=== PATIENT | female | born 1955 | race Caucasian/White ===

== ENCOUNTER 2016-05-10 05:00 | Inpatient (IN) ==
[2016-04-20 14:05] LABS: Basophils % 0.3 % (0.0-0.8); Eosinophils # 0.1 10*3/uL (0.0-0.87); Hematocrit 39.2 VOL% (35.7-47.0); Hemoglobin 12.6 GM/DL (12.0-16.0); Immature Granulocytes % 0.3 %; Immature Granulocytes Absolute 0.03 #; Lymphocytes # 2.8 10*3/uL (1.4-4.0); Lymphocytes % 31.5 % (21.3-54.2); Mean Corpuscular HGB Conc 32.1 GM/DL (32-36); Mean Corpuscular Hemoglobin 32 PG (27-34); Mean Platelet Volume 9.6 FL (9.6-12.0); Monocytes # 0.5 10*3/uL (0.11-0.8); Monocytes % 5.7 % (1.7-12.7); Neutrophils # 5.3 10*3/uL (1.4-7.4); Neutrophils % 61.2 % (38.7-73.9); Platelet Count 251 T/CUMM (130-400); Red Cell Distribution Width 11.9 % (9.3-17.3); White Blood Count 8.8 T/CUMM (4-12)
[2016-04-20 14:35] LABS: PT Patient Result 10.7 SECS; Partial Thromboplastin Time 25.7 SECS (0-40)
--- NOTE | 2016-04-20 14:35 | XRay Report ---
XR chest 2V Indication: Respiratory preoperative evaluation Comparison: 21 Jul 2013 Findings: The heart and mediastinum are normal in size and configuration. The pulmonary vascularity is normal in caliber. No lung infiltrates, effusions, pneumothorax or other abnormality is demonstrated. Impression: Normal chest x-ray PROCEDURE INTERPRETED AT [facility] DEPARTMENT OF RADIOLOGY Final Report Signed by: Dr. Suraj Pugh
--- NOTE | 2016-04-20 14:36 | EKG Report ---
Stationary ECG Study [facility] Test Date: 04/20/2016 2:35:58 PM Pat Name: CLINTON ALDANA Department: Room: Gender: F Blueprint Engineer: FLAVIA ROTH : 1955 Requested by: Sunil Kamara Order Number: [id number] Reading MD: SANDEEP MILLER Intervals [place] Rate: 56 P: 44 ID: [id number] QRS: 19 QRSD: 100 T: 24 QT: 392 QTc: 384 Interpretive Statements SINUS RHYTHM Electronically Signed On 04-20-16 22:09:53 DIRECTOR OF CARDIAC CATH LAB by SANDEEP MILLER [email or web address]
[2016-04-20 14:51] LABS: Albumin 3.8 G/DL (3.4-5.0); Bilirubin,Total 0.4 MG/DL (0.2-1.0); Calcium 8.3 MG/DL (8.5-10.1); Osmolality,Calculated 285.8 MOS/KG (273-304); Total Protein 6.8 G/DL (6.4-8.3)
[2016-05-08 14:46] LABS: Apearance,Urine Clear (Clear); Bilirubin,Urine Negative (Negative); Blood, Urine Negative (Negative); Glucose,Urine (UA) Negative (Negative); Ketones,Urine 25 mg/dL (Negative); Nitrite,Urine Negative (Negative); Protein,Urine 30 MG/DL; Urine Color Amber (Yellow); Urine Urobilinogen 0.2 EU/DL (0.2-1.0)
[2016-05-08 15:06] LABS: Bacteria,Urine 2+ /HPF (Few); Mucus,Urine Few /LPF (Occasional); Squamous Epithelial Cell,Urine Few /HPF (0-10)
[2016-05-10] MEDS ORDERED: ceFAZolin 1,000 MG VIAL ONE (05:51)
[2016-05-10] MEDS ORDERED: VANCOMYCIN 1,000 MG VIAL ONE (05:51)
[2016-05-10] MEDS ORDERED: SODIUM CHLORIDE 0.9% 100 ML IV ONE (05:52)
[2016-05-10] MEDS ORDERED: FAMOTIDINE 20 MG TABLET ONE (05:52)
[2016-05-10] MEDS ORDERED: LORazepam 1 MG TABLET ONE (05:52)
[2016-05-10] MEDS ORDERED: LORazepam 1 MG TABLET PO ONE (06:00)
[2016-05-10] MEDS ORDERED: FAMOTIDINE 20 MG TABLET PO ONE (06:00)
[2016-05-10] MEDS ORDERED: VANCOMYCIN INJ 1,000 MG in SODIUM CHLORIDE 0.9% 250 ML IV ONE (06:00)
[2016-05-10] MEDS ORDERED: LACTATED RINGERS 1,000 ML IV SCH (06:16)
[2016-05-10] MEDS ORDERED: TRANEXAMIC ACID 1,000 MG/10 ML VIAL IV ONE (06:36)
[2016-05-10] MEDS ORDERED: BACITRACIN OINT 0.9 GM PACK TOP ONE (06:39)
[2016-05-10] MEDS ORDERED: ESMOLOL 100 MG/10 ML VIAL IV ONE (07:15)
[2016-05-10] MEDS ORDERED: PROPOFOL 200 MG/20 ML VIAL IV ONE (07:15)
[2016-05-10] MEDS ORDERED: ONDANSETRON 4 MG/2 ML VIAL ONE (07:15)
[2016-05-10] MEDS ORDERED: LIDOCAINE 2% 5 ML VIAL ONE (07:15)
--- NOTE | 2016-05-10 07:18 | History and Physical Update ---
History and Physical Update - History and Physical H&P was reviewed, the patient examined and there: are no changes in the patients condition since last H&P was completed.
[2016-05-10 08:44] LABS: Apearance,Urine CLEAR (Clear); Bilirubin,Urine Negative (Negative); Blood, Urine Negative (Negative); Glucose,Urine (UA) Negative (Negative); Ketones,Urine Negative (Negative); Nitrite,Urine Negative (Negative); Protein,Urine Negative; RBC,Urine 1 /HPF (0-4); Squamous Epithelial Cell,Urine Occasional /HPF (0-10); Urine Color Straw (Yellow); Urine Specific Gravity 1.009 (1.001-1.035); Urine Urobilinogen < 2.0 EU/DL (0.2-1.0); WBC,Urine <1 /HPF (0-6)
[2016-05-10] MEDS ORDERED: oxyCODONE IR 5 MG TABLET PO PRN (08:56)
[2016-05-10] MEDS ORDERED: ONDANSETRON 4 MG/2 ML VIAL IV PRN (08:56)
[2016-05-10] MEDS ORDERED: ZALEPLON 5 MG CAPSULE PO PRN (08:56)
[2016-05-10] MEDS ORDERED: diphenhydrAMINE CAP 25 MG CAPSULE PO PRN (08:56)
[2016-05-10] MEDS ORDERED: MORPHINE 2 MG/1 ML SYRINGE IV PRN ×2 (08:56)
--- NOTE | 2016-05-10 08:56 | Operative Note ---
Date of procedure: 05/10/16 Procedure: DIAGNOSIS: Left hip osteoarthritis, primary PROCEDURE: Left total hip arthroplasty (CPT#18854) SURGEON: Musa ANESTHESIA: Spinal JAPANESE TUTOR: Kemal Cox PROCEDURE and FINDINGS: After adequate anesthesia was induced, her left lower extremity was prepped and draped in usual sterile fashion lateral decubitus position. A posterior lateral approach was made. Skin, subcutaneous tissue and iliotibial band was incised. Gluteus parmjit muscle belly was split in line with its fibers. Capsule and external rotators were taken down as a single layer as an inverted L-shaped capsulotomy. The hip was dislocated. Templated femoral neck cut was made. Acetabulum was prepared by excising labrum and foveal contents. Acetabulum was sequentially reamed to 55 mm. A 56 mm Continuum shell was press fit. One 6.5mm screw was placed. A trial liner was placed. Femur was prepared by using the box osteotome and sequentially broaching to size 14. Components were trial. A 32 mm neutral liner longevity liner and dome hole plug was placed. A size 14 Versys fiber metal tapered stem was press-fit with a 32+0 mm head. Capsule and external rotators were repaired back to the greater trochanter with #5 Tycron. Deep layers were closed with 0 Vicryl suture. Subcutaneous tissue was closed deep with 2-0 Vicryl runner and superficially with 3-0 Vicryl interrupted, buried sutures. Skin was closed with bridgett. Bacitracin and sterile occlusive dressing was applied. Surgeon / Physician: Sunil Vigil Jr. Results - Labs CBC & BMP: 04/20/16 14:00 04/20/16 14:00 Discharge Plan - Discharge Medications No Action Multivit-Min/FA/Lycopene/Lut [Centrum Silver Tablet] 1 each PO DAILY Estradiol [Estradiol 0.1 mg/24 hr (2x week) Patch] 1 patch TRANSDERM SUWE Calcium (Citrate) [Citracal] 600 mg PO DAILY - Follow Up or Referral - Forms/Instructions
[2016-05-10] MEDS ORDERED: KETOROLAC 30 MG/1 ML VIAL ONE (09:16)
[2016-05-10] MEDS: KETOROLAC 30 MG/1 ML VIAL IV SCH ×3 (09:20→21:12)
[2016-05-10] MEDS ORDERED: fentaNYL 100 MCG/2 ML VIAL ONE (09:21)
[2016-05-10] MEDS ORDERED: MIDAZOLAM 2 MG/2 ML VIAL ONE (09:21)
[2016-05-10] MEDS ORDERED: ACETAMINOPHEN 1,000 MG/100 ML VIAL IV ONE (09:21)
[2016-05-10] MEDS ORDERED: SODIUM CHLORIDE 0.9% 250 ML IV ONE (09:22)
[2016-05-10] MEDS ORDERED: ePHEDrine 50 MG/ML AMP ONE (09:22)
--- NOTE | 2016-05-10 09:24 | Anesthesia ---
Anesthesia Post OP - Post Ansesthetic Evaluation Patient seen in post op: Yes Resp: within normal limits CV: within normal limits Mental: within normal limits Temp: within normal limits [id number]: within normal limits Nausea and Vomiting: within normal limits Pain: within normal limits
--- NOTE | 2016-05-10 10:33 | XRay Report ---
History: Joint replacement left hip Date: 05/10/2016 Study: Left hip single view Comparison exam: No previous The patient is postop left hip replacement. The left hip prosthesis is well conjugated. There is no radiographic evidence of complication. Postsurgical soft tissue emphysema is noted. Surgical skin bridgett overlie the soft tissues laterally. Impression: Satisfactory postoperative appearance of the left hip prosthesis PROCEDURE INTERPRETED AT [facility] DEPARTMENT OF RADIOLOGY Final Report Signed by: Dr. Deanne Youngblood
[2016-05-10] MEDS: DOCUSATE SODIUM 100 MG CAPSULE PO SCH ×2 (11:19→21:12)
[2016-05-10] MEDS: MULTIVITAMIN (CENTRUM) TABLET PO SCH (11:19)
[2016-05-10] MEDS: ACETAMINOPHEN 500 MG TABLET PO SCH ×2 (12:48→18:00)
[2016-05-10] MEDS: oxyCODONE IR 5 MG TABLET PO PRN ×2 (13:12→19:22)
[2016-05-10] MEDS: LACTATED RINGERS 1,000 ML IV SCH (15:59)
--- NOTE | 2016-05-10 17:01 | Orthopedic Progress Note ---
Orthopedics - Subjective Interval history: Post check. Just got into bed. NV ok. Dressing dry. Continue current plan. Exam - Constitutional Vitals: Period Temp Pulse Resp BP Sys/Sylvester Pulse Ox Last 24 Hr 97.0 F-99.4 F 67-104 16- 104-126/57-92 93-99 Results - Labs CBC & BMP: 04/20/16 14:00 04/20/16 14:00
[2016-05-11] MEDS: LACTATED RINGERS 1,000 ML IV SCH ×3 (00:14→09:48)
[2016-05-11] MEDS: ACETAMINOPHEN 500 MG TABLET PO SCH ×2 (00:15→06:28)
[2016-05-11] MEDS: KETOROLAC 30 MG/1 ML VIAL IV SCH (03:59)
[2016-05-11] MEDS: FONDAPARINUX 2.5 MG/0.5 ML SYRINGE SUBCUT SCH (03:59)
[2016-05-11] MEDS: oxyCODONE IR 5 MG TABLET PO PRN ×2 (06:28→13:24)
[2016-05-11 06:52] LABS: Basophils % 0.2 % (0.0-0.8); Eosinophils # 0.1 10*3/uL (0.0-0.87); Eosinophils % 0.6 % (0.00-10.9); Hematocrit 31.9 VOL% (35.7-47.0); Hemoglobin 10.6 GM/DL (12.0-16.0); Immature Granulocytes % 0.6 %; Immature Granulocytes Absolute 0.09 #; Lymphocytes # 1.8 10*3/uL (1.4-4.0); Lymphocytes % 12.4 % (21.3-54.2); Mean Corpuscular HGB Conc 33.2 GM/DL (32-36); Mean Corpuscular Hemoglobin 31 PG (27-34); Mean Corpuscular Volume 94.4 FL (87-102); Mean Platelet Volume 9.8 FL (9.6-12.0); Monocytes % 6.8 % (1.7-12.7); Neutrophils # 11.3 10*3/uL (1.4-7.4); Neutrophils % 79.4 % (38.7-73.9); Platelet Count 212 T/CUMM (130-400); Red Blood Count 3.38 MC/CUMM (3.8-5.5); Red Cell Distribution Width 11.9 % (9.3-17.3); White Blood Count 14.3 T/CUMM (4-12)
[2016-05-11 07:30] LABS: Calcium 7.8 MG/DL (8.5-10.1); Osmolality,Calculated 287.6 MOS/KG (273-304); Potassium 3.9 MMOL/L (3.5-5.1)
[2016-05-11] MEDS ORDERED: ACETAMINOPHEN 325 MG TABLET PO PRN (08:58)
[2016-05-11] MEDS: DOCUSATE SODIUM 100 MG CAPSULE PO SCH ×2 (09:15→20:56)
[2016-05-11] MEDS: MAGNESIUM HYDROXIDE SUSP 30 ML UDCUP PO PRN (09:15)
[2016-05-11] MEDS: MULTIVITAMIN (CENTRUM) TABLET PO SCH (09:15)
--- NOTE | 2016-05-11 09:49 | Orthopedic Progress Note ---
Orthopedics - Subjective Interval history: comfortable. nv ok. dressing dry. mobilize with therapy. Exam - Constitutional Vitals: Period Temp Pulse Resp BP Sys/Sylvester Pulse Ox Last 24 Hr 97.6 F-99.4 F 70-101 17-20 77-122/35-77 93-97 Results - Labs CBC & BMP: 05/11/16 06:30 05/11/16 06:30
--- NOTE | 2016-05-11 10:20 | Pathology Report from [facility] ---
ACCESSION # : [id number] PATIENT NAME : Clinton Aldana ORDERING DR : TIGRE ALLISON MD CLINICAL HX: LT hip osteoarthritis POST-OP DX: Same SPECIMEN INFO: LT hip bone & tissue GROSS DESCRIPTION: Received in formalin labeled "CLINTON ALDANA" is a 4.7 x 4.8 x 5.6 cm femoral head. The articular surfaces are degenerative with a 0.4 cm area of eburnation and peripheral osteophyte formalin present. The cut surface is smooth with moderate bone softening appreciated. Also received in the specimen container are portions of hyperemic bone fragments and creamy white tissue measuring collectively 6.5 x 8.5 cm. Representaive sections are submitted in one cassette following decalcification. DIAGNOSIS FOR CLINTON ALDANA: Left femoral head with changes of degenerative joint disease/ osteoarthritis.Unremarkable hematopoietic marrow with nor abnormal collections of blasts, plasma cells, tumor cells, or lymphocytes seen. SERVICE DATE: 05/10/2016 REPORT DATE: 05/11/2016 PATHOLOGIST: Lake Giang M.D. [facility]
[2016-05-11] MEDS: oxyCODONE/ACETAMINOPHEN 5-325 MG TABLET PO PRN ×2 (16:58→20:57)
[2016-05-12] MEDS: FONDAPARINUX 2.5 MG/0.5 ML SYRINGE SUBCUT SCH (02:22)
[2016-05-12] MEDS: oxyCODONE/ACETAMINOPHEN 5-325 MG TABLET PO PRN ×3 (03:52→10:30)
[2016-05-12 05:07] LABS: Basophils % 0.2 % (0.0-0.8); Eosinophils # 0.2 10*3/uL (0.0-0.87); Eosinophils % 1.3 % (0.00-10.9); Hematocrit 32.6 VOL% (35.7-47.0); Hemoglobin 10.4 GM/DL (12.0-16.0); Immature Granulocytes % 0.5 %; Immature Granulocytes Absolute 0.07 #; Mean Corpuscular HGB Conc 31.9 GM/DL (32-36); Mean Corpuscular Hemoglobin 31 PG (27-34); Mean Corpuscular Volume 98.5 FL (87-102); Mean Platelet Volume 10.1 FL (9.6-12.0); Monocytes # 1.2 10*3/uL (0.11-0.8); Monocytes % 9.4 % (1.7-12.7); Neutrophils # 9.7 10*3/uL (1.4-7.4); Neutrophils % 73.6 % (38.7-73.9); Platelet Count 221 T/CUMM (130-400); Red Blood Count 3.31 MC/CUMM (3.8-5.5); Red Cell Distribution Width 11.9 % (9.3-17.3); White Blood Count 13.1 T/CUMM (4-12)
--- NOTE | 2016-05-12 07:21 | Discharge Summary ---
Hospital Course - Hospital Course Hospital Course: Leena Quezada was admitted after undergoing an uncomplicated left total hip arthroplasty. She received perioperative DVT and antimicrobial prophylaxis. She received physical therapy. She was discharged home postoperative day #2 in stable condition. Her dressing is clean, dry and intact this morning. Her left lower extremity is neurovascularly unchanged. Discharge Plan - Discharge Data Disposition: Home Health Service Discharge Diet: advance to your usual diet Hygiene: may shower Weight Bearing at Discharge: weight bear as tolerated Driving: not until seen by doctor - Discharge Medications Continue Multivit-Min/FA/Lycopene/Lut [Centrum Silver Tablet] 1 each PO DAILY Estradiol [Estradiol 0.1 mg/24 hr (2x week) Patch] 1 patch TRANSDERM SUWE Calcium (Citrate) [Citracal] 600 mg PO DAILY - Follow Up or Referral - Forms/Instructions Additional Discharge Instructions: Posterior hip precautions for 3 months. Daily dry dressing changes. Arrange for walker and bedside commode for home use. Wear JOSE hose for 1 month. Follow-up appointment in 3 weeks. Discontinue bridgett and Steri-Strip wound on May 22, 2016. Prescription for Percocet 5 and Arixtra was written. Exam - Constitutional Vitals: Period Temp Pulse Resp BP Sys/Sylvester Pulse Ox Last 24 Hr 98.6 F-100.4 F 73-96 18-19 96-114/56-73 92-98 Discharge Results Procedures and tests throughout hospitalization: Pending Orders 05/13/16 04:00 Comp Blood Count Auto Diff IN AM Labs on day of discharge: Labs from last 24 hours 05/12/16 05/11/16 03:32 06:30 WBC 13.1 H RBC 3.31 L Hgb 10.4 L Hct 32.6 L MCV 98.5 MCH 31 MCHC 31.9 L RDW 11.9 Plt Count 221 MPV 10.1 Neut % (Auto) 73.6 Lymph % (Auto) 15.0 L [place] % (Auto) 9.4 Eos % (Auto) 1.3 Baso % (Auto) 0.2 Neut # (Auto) 9.7 H Lymph # (Auto) 2.0 [place] # (Auto) 1.2 H Eos # (Auto) 0.2 Baso # (Auto) 0.0 Immature Gran % 0.5 Nucleated RBC % 0.0 Immature Gran # 0.07 Nucleated RBCs # 0.00 Sodium 146 H Potassium 3.9 Chloride 111 H Carbon Dioxide 25 Anion Gap 13.9 BUN 7 Creatinine 0.50 L GFR Calculation 120 BUN/Creatinine Ratio 14.00 Glucose 103 Calculated Osmolality 287.6 Calcium 7.8 L DS: Provider Date of admission: 05/10/16 05:53 Primary care physician: . No PCP Attending physician on admission: Sunil Vigil Jr., Consults: 05/10/16 08:56 Consult to Case Mgmt/Social Srvs [CONS] Routine Reason for Case Mgmt/Social Srvs: Rehab Home Health Equipment Consult Comment: Bedside Commode, CPM, Walker Consult to Occupational Therapy [CONS] Routine Reason for Occupational Therapy: Evaluate and Treat Consult Comment: ADL's Consult to Physical Therapy [CONS] Routine Reason for Physical Therapy: Evaluate and Treat Gait Training Start Therapy: Today Consult Comment: wbat, hip precautions 05/10/16 10:57 Consult to Pastoral Services [CONS] Routine Comment: Pastoral Screen: Request Engine Testing Supervisor Visit Pastoral Screen Source of Request: Family Discharging clinician: Sunil Vigil Jr., Expected date of discharge: 05/12/16
[2016-05-12] MEDS: MULTIVITAMIN (CENTRUM) TABLET PO SCH (08:24)
[2016-05-12] MEDS: DOCUSATE SODIUM 100 MG CAPSULE PO SCH (08:24)
[2016-05-12] MEDS: MAGNESIUM HYDROXIDE SUSP 30 ML UDCUP PO PRN (08:24)
[2016-05-12 12:45] VITALS: BP 116/62
[2016-05-13] MEDS ORDERED: ESTRADIOL TRANSDERM SCH (08:59)
== END 2016-05-12 13:30 | disposition home health service (06) | DRG 470 ==
LOC: N.SDSINP 05:53 → N.3E 10:01
PROVIDERS: ADMIT Orthopaedic Surgery; ATTEND Orthopaedic Surgery